=== PATIENT | male | born 1970 ===

== ENCOUNTER 2018-06-28 07:34 | Day surgery (SDC) | payer OTHER ==
[~2018-06-28 07:34] MED LIST: Lactated Ringer's 500 ML IV ONE; Phenylephrine 2.5% Opht Soln OS SCH; Tobramycin/Dexamethasone OPHT OINT ONE
[2018-06-28] MEDS ORDERED: MethylPREDNISolone 40 mg Vial ONE (07:49)
[2018-06-28] MEDS ORDERED: Gentamicin 80 mg/2mL Inj. ONE (07:49)
[2018-06-28] MEDS ORDERED: Lidocaine 2% MPF (5 ml) Inj ONE (08:11)
[2018-06-28] MEDS ORDERED: Lactated Ringer's 500 ML IV ONE (09:15)
[2018-06-28 09:45] VITALS: BMI 26.9
[2018-06-28] MEDS ORDERED: Midazolam 2 MG/2 ML VIAL ONE (10:19)
[2018-06-28] MEDS ORDERED: Propofol 10 mg/ml Inj (20 ML) ONE (10:19)
[2018-06-28] MEDS: Lidocaine/Epinephrine 1% 1:100000 10 ML IJ ONE ×2 (10:20→10:36)
[2018-06-28] MEDS: Povidone Iodine Ophthalmic 5% Soln ONE ×2 (10:20→10:35)
[2018-06-28] MEDS: Hyaluronidase Human, Recombi 150 U/ML VIAL ONE ×2 (10:20→10:36)
[2018-06-28 11:06] VITALS: PULSE 66; RESP 18; TEMP 97
[2018-06-28 11:27] VITALS: BP 115/76; O2SAT 98
--- NOTE | 2018-06-28 21:51 | OP ---
PROCEDURE DATE: 06/28/2018 PREOPERATIVE DIAGNOSIS: Peripheral progressive pterygium, left eye. POSTOPERATIVE DIAGNOSIS: Peripheral progressive pterygium, left eye. SURGEON: Randy Preston MD TYPE OF ANESTHESIA: Retrobulbar block. COMPLICATIONS: None. ESTIMATED BLOOD LOSS: 0.5 mL DESCRIPTION OF PROCEDURE: The patient was brought to the operating room and properly identified. Anesthesia gave sedation, the patient was blocked. The patient was then prepped in the usual sterile fashion, sitting superiorly. The pterygium was noted to be growing into the cornea on the left eye. It was injected with lidocaine with epinephrine. It was removed with a 0.12 and Bethany scissors. Once it was removed, a sherry yahir was used to smooth out this corneal portion. Hemostasis was maintained with cautery. Mitomycin C at 0.02 % was placed on the bare sclera for one and a half minutes and then washed with three large syringes of BSS. A superior conjunctival graft was then cut to the appropriate size and glued into place with Tisseel glue. Once it was glued, subconjunctival antibiotics and steroids were then given. Eye was covered with a soft patch and shield. The patient returned to recovery room in stable condition. Randy Preston MD
== END 2018-06-28 11:30 | disposition home or self-care (01) ==
LOC: C.SDS 07:34
PROVIDERS: ATTEND Ophthalmology
DX: H11.052 Peripheral pterygium, progressive, left eye (principal)
CPT/HCPCS: 65426; 88304; J1580; J2250; J2704; J2920; J3470; J7120